=== PATIENT | female | born 1945 | race Two or more races ===

== ENCOUNTER 2024-01-16 13:05 | Emergency (ER) | payer OTHER, MEDICAID ==
[~2024-01-16] VITALS: Ht 154.9 cm; Wt 66.1 kg
[2024-01-16 15:02] VITALS: BP 145/76; PULSE 73; RESP 18; TEMP 98.1; O2SAT 97
[2024-01-16] MEDS: TETANUS-DIPTH-ACEL PERTUSSIS 0.5ML SYR Tdap IM ONE (15:38)
[2024-01-16] MEDS: cefTRIAXone SOD 500 MG VL IM ONE (15:39)
== END 2024-01-16 15:46 | disposition home or self-care (01) ==
LOC: ER 13:05
DX: S01.131A Puncture wound without foreign body of right eyelid and periocular area, initial encounter (principal); X58.XXXA Exposure to other specified factors, initial encounter; Y93.89 Activity, other specified; Y92.89 Other specified places as the place of occurrence of the external cause; Y99.8 Other external cause status
CPT/HCPCS: 90471; 90715; 96372; 99284; J0696